=== PATIENT | female | born 1995 | race Caucasian/White ===

== ENCOUNTER 2016-10-03 20:56 | Emergency (ER) | payer OTHER ==
[~2016-10-03] VITALS: Ht 175.3 cm; Wt 88.1 kg
[2016-10-03] MEDS ORDERED: SODIUM CHLORIDE 0.9% 1,000ML IVBOLUS ONE (21:30)
[2016-10-03] MEDS ORDERED: ONDANSETRON 2MG/ML, 2ML IVPush ONE (21:30)
[2016-10-03] MEDS ORDERED: KETOROLAC 30 MG/1 ML IVPush ONE (21:30)
[2016-10-03] MEDS ORDERED: SODIUM CHLORIDE FLUSH 10ML SYR IVF ONE (21:30)
[2016-10-03] MEDS ORDERED: KETOROLAC 30 MG/1 ML ONE (21:33)
[2016-10-03] MEDS ORDERED: ONDANSETRON 2MG/ML, 2ML ONE (21:33)
[2016-10-03 22:01] LABS: ASPARTATE AMINO TRANSFERASE 15 U/L (15-37); BLOOD UREA NITROGEN 16 mg/dL (7-18)
[2016-10-03 22:33] VITALS: BP 134/66
== END 2016-10-03 22:37 | disposition home or self-care (01) ==
LOC: ED 22:17
DX: R10.84 Generalized abdominal pain (principal); R11.2 Nausea with vomiting, unspecified; R19.7 Diarrhea, unspecified; G43.909 Migraine, unspecified, not intractable, without status migrainosus
CPT/HCPCS: 36415; 80053; 81001; 83690; 84703; 85025; 87086; 96374; 96375; 99284; J1885; J2405; J7030

== ENCOUNTER 2017-05-26 11:54 | Emergency (ER) | payer OTHER ==
[~2017-05-26] VITALS: Ht 175.3 cm; Wt 88.6 kg
[2017-05-26 11:58] VITALS: BP 118/77
== END 2017-05-26 14:18 | disposition home or self-care (01) ==
LOC: ED 13:34
DX: M54.5 Low back pain (principal); G89.11 Acute pain due to trauma; G43.909 Migraine, unspecified, not intractable, without status migrainosus; G89.29 Other chronic pain
CPT/HCPCS: 72110; 99284